=== PATIENT | male | born 1975 | race Hispanic/Latino ===

== ENCOUNTER 2017-08-13 19:18 | Emergency (ER) | payer SELFPAY ==
[2017-08-13 20:01] LABS: #Basophils 0.1 thou/uL (0.0-0.2); #Lymphocytes 3.7 thou/uL (1.20-3.40); #Neutrophils 12.7 thou/uL (1.40-6.50); %Basophils 0.5 % (0.0-1.0); %Eosinophils 0.2 % (0.0-10.0); %Lymphocytes 21.1 % (21.0-51.0); %Monocytes 5.5 % (0.0-10.0); %Neutrophils 72.8 % (42.0-75.0); Hemoglobin 15.1 g/dL (14.0-18.0); Mean Corpuscular HGB CONC 33.7 g/dL (32.0-36.0); Mean Corpuscular Hemoglobin 30.5 pg (27.0-31.0); Mean Corpuscular Volume 90.5 fL (78.0-98.0); Mean Platelet Volume 5.8 fL (7.4-10.4); Platelet Count 447 thou/uL (130-400); RBC Distribution Width 12.3 % (11.5-14.5); Red Blood Cell (RBC) Count 4.97 mill/uL (4.70-6.10); White Blood Cell (WBC) Count 17.4 thou/uL (4.8-10.8)
[2017-08-13 20:24] LABS: ALT (SGPT) 9 U/L (8-55); AST (SGOT) 17 U/L (5-34); Albumin 4.7 g/dL (3.5-5.0); Alcohol Less than 10 mg/dL (Less than 10); Alkaline Phosphatase 166 U/L (40-150); Anion Gap 17 mmol/L (10-20); BUN (Urea Nitrogen) 4 mg/dL (8.9-20.6); Bilirubin, Total 0.2 mg/dL (0.2-1.2); CK (CPK) 474 U/L (30-200); Calc. Creatinine Clearance 0 mL/min (70-130); Calcium 9.3 mg/dL (7.8-10.44); Carbon Dioxide 17 mmol/L (22-29); Chloride 117 mmol/L (98-107); Estimated GFR-MDRD 46; Globulin 2.9 g/dL (2.4-3.5); Glucose 130 mg/dL (70-105); Protein, Total 7.6 g/dL (6.0-8.3); Sodium 148 mmol/L (136-145)
[2017-08-13 20:27] LABS: Potassium 2.9 mmol/L (3.5-5.1)
[2017-08-13 20:35] LABS: Bilirubin Negative (Negative); Blood, Urine Negative (Negative); Clarity CLEAR (Clear); Glucose, Urine (Dipstick) Negative (Negative); Leukocyte Negative (Negative); Nitrite Negative (Negative); Protein, Urine (Dipstick) 30 mg/dL (Neg-Trace); Specific Gravity, Urine 1.026 (1.002-1.036); Urobilinogen 0.2 mg/dL (0.2-1.0)
[2017-08-13 20:40] LABS: Bacteria/HPF None Seen HPF (None Seen); Hyaline Casts/LPF 0-3 HYALINE CAST LPF (0-3 Hyaline); RBC/HPF None Seen HPF (0-3); Squamous Epithelial None Seen HPF (0-3); WBC/HPF None Seen HPF (0-3)
[2017-08-13] MEDS ORDERED: Potassium Chloride 20 MEQ TAB ONE (20:42)
[2017-08-13 20:51] LABS: Medtox Reader # READER 1
[2017-08-13 20:52] LABS: Amphetamine Not Detected (NotDetected); Barbiturates Screen Not Detected (NotDetected); Benzodiazepine Screen Detected (NotDetected); Cocaine Metabolite Screen Not Detected (NotDetected); Medtox Control Line Valid? VALID (VALID); Methadone Not Detected (NotDetected); Methamphetamine Not Detected (NotDetected); Opiate Screen Not Detected (NotDetected); Oxycodone Screen Not Detected (NotDetected); Phencyclidine (PCP) Not Detected (NotDetected); THC/Cannabinoid Screen Not Detected (NotDetected); Tricyclic Screen Not Detected (NotDetected)
[2017-08-13] MEDS ORDERED: Ondansetron ODT 4 MG TAB ONE (21:12)
[2017-08-13] MEDS ORDERED: cloNIDine 0.1 MG TAB ONE (21:13)
[2017-08-14 00:11] LABS: Anion Gap 14 mmol/L (10-20); BUN (Urea Nitrogen) 4 mg/dL (8.9-20.6); Calc. Creatinine Clearance 0 mL/min (70-130); Calcium 8.4 mg/dL (7.8-10.44); Carbon Dioxide 18 mmol/L (22-29); Chloride 119 mmol/L (98-107); Estimated GFR-MDRD 54; Glucose 121 mg/dL (70-105); Potassium 3.2 mmol/L (3.5-5.1); Sodium 148 mmol/L (136-145)
[2017-08-14] MEDS ORDERED: Multivitamins, Adult 10 ML, Thiamine HCl 100 MG, Folic Acid 1 MG in Dextrose 5 %-0.45 %... IV SCH (01:00)
[2017-08-14] MEDS ORDERED: Mag-Al 1200 mg/1200 mg/30 ML UDCUP ONE (02:08)
== END 2017-08-14 05:13 | disposition home or self-care (01) ==
LOC: ERS 19:18 → EEVIPCON 19:18 → ERS 08-14 05:13
DX: E86.0 Dehydration (principal); R44.1 Visual hallucinations; F18.90 Inhalant use, unspecified, uncomplicated; F10.20 Alcohol dependence, uncomplicated; I10 Essential (primary) hypertension; F32.9 Major depressive disorder, single episode, unspecified; F17.210 Nicotine dependence, cigarettes, uncomplicated; Z79.899 Other long term (current) drug therapy
CPT/HCPCS: 36415; 80053; 80306; 80307; 81003; 81015; 82550; 84443; 85025; 93005; 96361; 96365; 96366; J3411; J7042; Q0162

== ENCOUNTER 2018-11-22 17:57 | Emergency (ER) | payer SELFPAY ==
[2018-11-22 18:58] LABS: Bilirubin Negative (Negative); Blood, Urine Negative (Negative); Clarity Clear (Clear); Glucose, Urine (Dipstick) Normal (Negative); Leukocyte Negative Leu/uL (Negative); Nitrite Negative (Negative); Protein, Urine (Dipstick) Negative (Neg-Trace); Urobilinogen Normal mg/dL (Less than 2)
[2018-11-22 19:10] LABS: #Basophils 0.1 thou/uL (0.0-0.2); #Eosinphils 0.1 thou/uL (0.0-0.7); #Lymphocytes 4.5 thou/uL (1.20-3.40); #Monocytes 0.9 thou/uL (0.11-0.59); #Neutrophils 8.9 thou/uL (1.40-6.50); %Basophils 0.6 % (0.0-1.0); %Eosinophils 0.8 % (0.0-10.0); %Monocytes 6.5 % (0.0-10.0); %Neutrophils 61.1 % (42.0-75.0); Hemoglobin 13.7 g/dL (14.0-18.0); Mean Corpuscular HGB CONC 35.1 g/dL (32.0-36.0); Mean Corpuscular Hemoglobin 31.3 pg (27.0-31.0); Mean Corpuscular Volume 89.1 fL (78.0-98.0); Mean Platelet Volume 6.3 fL (7.4-10.4); Platelet Count 415 thou/uL (130-400); RBC Distribution Width 12.2 % (11.5-14.5); Red Blood Cell (RBC) Count 4.37 mill/uL (4.70-6.10); White Blood Cell (WBC) Count 14.5 thou/uL (4.8-10.8)
[2018-11-22 19:29] LABS: ALT (SGPT) 14 U/L (8-55); AST (SGOT) 17 U/L (5-34); Albumin 4.7 g/dL (3.5-5.0); Alkaline Phosphatase 127 U/L (40-110); Anion Gap 13 mmol/L (10-20); BUN (Urea Nitrogen) Less than 4 mg/dL (8.9-20.6); Bilirubin, Total 0.2 mg/dL (0.2-1.2); Calc. Creatinine Clearance 0 mL/min (70-130); Calcium 9.3 mg/dL (7.8-10.44); Carbon Dioxide 22 mmol/L (22-29); Chloride 103 mmol/L (98-107); Estimated GFR-MDRD 77; Globulin 2.8 g/dL (2.4-3.5); Glucose 82 mg/dL (70-105); Lipase 22 U/L (8-78); Potassium 3.3 mmol/L (3.5-5.1); Protein, Total 7.5 g/dL (6.0-8.3); Sodium 135 mmol/L (136-145)
[2018-11-22] MEDS ORDERED: Ondansetron ODT 4 MG TAB ONE (21:25)
--- NOTE | 2018-11-26 15:22 | EKG ---
Test Reason : ABD PAIN Blood Pressure : / mmHG Vent. Rate : 052 BPM Atrial Rate : 052 BPM P-R Int : 130 ms QRS Dur : 082 ms QT Int : 430 ms P-R-T Axes : 065 040 050 degrees QTc Int : 399 ms Sinus bradycardia Otherwise normal ECG Confirmed by LORNA AYALA, KATHRIN ([id number]), video effects editor YAS MOSELEY ([id number]) on 11/26/2018 3:22:04 PM Referred By: Confirmed By:KATHRIN ROTHMAN MD
== END 2018-11-22 21:47 | disposition home or self-care (01) ==
LOC: ERS 17:57
DX: R11.2 Nausea with vomiting, unspecified (principal); E87.6 Hypokalemia; F41.9 Anxiety disorder, unspecified; R19.7 Diarrhea, unspecified
CPT/HCPCS: 36415; 80053; 81003; 83690; 85025; 93005; Q0162

== ENCOUNTER 2018-11-30 08:43 | Emergency (ER) | payer SELFPAY ==
[2018-11-30 09:16] LABS: #Basophils 0.1 thou/uL (0.0-0.2); #Eosinphils 0.2 thou/uL (0.0-0.7); #Lymphocytes 2.2 thou/uL (1.20-3.40); #Monocytes 0.6 thou/uL (0.11-0.59); #Neutrophils 7.1 thou/uL (1.40-6.50); %Basophils 0.8 % (0.0-1.0); %Eosinophils 1.6 % (0.0-10.0); %Lymphocytes 21.4 % (21.0-51.0); %Monocytes 6.3 % (0.0-10.0); %Neutrophils 69.9 % (42.0-75.0); Hemoglobin 14.6 g/dL (14.0-18.0); Mean Corpuscular Hemoglobin 30.8 pg (27.0-31.0); Mean Corpuscular Volume 90.3 fL (78.0-98.0); Mean Platelet Volume 6.7 fL (7.4-10.4); Platelet Count 399 thou/uL (130-400); RBC Distribution Width 12.3 % (11.5-14.5); Red Blood Cell (RBC) Count 4.74 mill/uL (4.70-6.10); White Blood Cell (WBC) Count 10.2 thou/uL (4.8-10.8)
[2018-11-30 09:38] LABS: ALT (SGPT) 22 U/L (8-55); AST (SGOT) 20 U/L (5-34); Albumin 4.6 g/dL (3.5-5.0); Alkaline Phosphatase 111 U/L (40-110); Anion Gap 13 mmol/L (10-20); BUN (Urea Nitrogen) Less than 4 mg/dL (8.9-20.6); Bilirubin, Total 0.2 mg/dL (0.2-1.2); Calc. Creatinine Clearance 0 mL/min (70-130); Calcium 9.6 mg/dL (7.8-10.44); Carbon Dioxide 24 mmol/L (22-29); Chloride 107 mmol/L (98-107); Estimated GFR-MDRD 72; Globulin 2.5 g/dL (2.4-3.5); Glucose 138 mg/dL (70-105); Lipase 24 U/L (8-78); Potassium 3.9 mmol/L (3.5-5.1); Protein, Total 7.1 g/dL (6.0-8.3); Sodium 140 mmol/L (136-145)
[2018-11-30] MEDS ORDERED: ISOVUE-370 76%-LOCM 1 ML ONE (10:03)
[2018-11-30] MEDS ORDERED: Lidocaine Viscous Sol 2% 15 ml UD Cup ONE (10:21)
[2018-11-30] MEDS ORDERED: Mag-Al 1200 mg/1200 mg/30 ML UDCUP ONE (10:21)
[2018-11-30] MEDS ORDERED: Pantoprazole 40 MG VIAL ONE (10:21)
--- NOTE | 2018-11-30 10:38 | CT ---
CT Abdomen Pelvis W Con HISTORY: Abdominal pain with vomiting and diarrhea. COMPARISON: None. FINDINGS: On the uppermost slice there is a tiny area of tree-in-bud nodularity within the right midd le lobe, this could represent a very minimal pneumonitis. The liver, spleen, pancreas and gallbladder regions appear unremarkable. Right and left adrenal glands and right and left kidneys are normal in size. There is no significant periaortic or mesenteric lymphadenopathy. No bowel wall abnormalities. CT of pelvis performed with intravenous contrast enhancement: The appendix appears unremarkable, is s omewhat difficult to visualize. There is no evidence of adenopathy, mass or free fluid. Review of osseous structures show no lytic or blastic bony changes. IMPRESSION: No acute findings of the abdomen or pelvis.
[2018-11-30 10:56] LABS: Bilirubin Negative (Negative); Blood, Urine Negative (Negative); Clarity Clear (Clear); Glucose, Urine (Dipstick) Normal (Negative); Leukocyte Negative Leu/uL (Negative); Nitrite Negative (Negative); Protein, Urine (Dipstick) Negative (Neg-Trace); Urobilinogen Normal mg/dL (Less than 2)
== END 2018-11-30 11:41 | disposition home or self-care (01) ==
LOC: ERS 08:43
DX: R11.2 Nausea with vomiting, unspecified (principal); R19.7 Diarrhea, unspecified; R10.13 Epigastric pain; I10 Essential (primary) hypertension; F32.9 Major depressive disorder, single episode, unspecified; F17.210 Nicotine dependence, cigarettes, uncomplicated; Z79.899 Other long term (current) drug therapy
CPT/HCPCS: 36415; 74177; 80053; 81003; 83690; 85025; 96374; C9113; Q9966

== ENCOUNTER 2022-07-07 14:55 | Emergency (ER) | payer SELFPAY ==
[~2022-07-07 14:55] MED LIST: Iopamidol-370 76% 500 ML MDV (1 ML CHARGE) ONE
[2022-07-07 15:49] LABS: Hemoglobin 15.1 g/dL (14.0-18.0); Mean Corpuscular HGB CONC 33.5 g/dL (32.0-36.0); Mean Corpuscular Hemoglobin 29.8 pg (27.0-31.0); Mean Corpuscular Volume 89.1 fl (78.0-98.0); Mean Platelet Volume 8.9 fL (7.4-10.4); Platelet Count 426 10x3/uL (130-400); RBC Distribution Width 12.7 % (11.5-14.5); Red Blood Cell (RBC) Count 5.06 mill/uL (4.70-6.10); White Blood Cell (WBC) Count 25.1 10x3/uL (4.8-10.8)
[2022-07-07 15:53] LABS: Delete Auto Diff?? YES; Manual Diff?? YES
[2022-07-07 16:09] LABS: ALT (SGPT) 21 U/L (8-55); AST (SGOT) 15 U/L (5-34); Albumin 5.1 g/dL (3.5-5.0); Alkaline Phosphatase 154 U/L (40-110); Anion Gap 16 mmol/L (10-20); BUN (Urea Nitrogen) 8 mg/dL (8.9-20.6); Bilirubin, Total 0.4 mg/dL (0.2-1.2); Calc. Creatinine Clearance 0 mL/min (70-130); Calcium 10.8 mg/dL (7.8-10.44); Carbon Dioxide 25 mmol/L (22-29); Chloride 97 mmol/L (98-107); Estimated GFR 74; Globulin 3.5 g/dL (2.4-3.5); Glucose 116 mg/dL (70-105); Lipase 78 U/L (8-78); Potassium 4.8 mmol/L (3.5-5.1); Protein, Total 8.6 g/dL (6.0-8.3); Sodium 133 mmol/L (136-145)
[2022-07-07 16:20] LABS: CellaVision Operator ID LAB.MJL; Eosinophils 2 % (0-10); Lymphocytes 11 % (21-51); Monocytes 6 % (0-10); Neutrophil 77 % (42-75); Platelet Morphology Comment Platelets Increased; RBC Morphology Within Normal Limits; Reactive Lymphocytes 3 % (0-10); Total Cell Count 100
[2022-07-07] MEDS ORDERED: Ondansetron PF 4 MG/2 ML Vial ONE (17:45)
[2022-07-07] MEDS ORDERED: Ketorolac Tromethamine 30 MG/ML VIAL ONE (17:45)
[2022-07-07] MEDS ORDERED: Morphine 4 MG/ML VIAL ONE (18:23)
[2022-07-07 18:25] LABS: Bacteria/HPF None Seen HPF (None Seen); Bilirubin Negative (Negative); Blood, Urine Negative (Negative); Clarity Clear (Clear); Glucose, Urine (Dipstick) Normal (Negative); Ketone, Urine Negative (Negative); Leukocyte Negative Leu/uL (Negative); Nitrite Negative (Negative); Protein, Urine (Dipstick) 30 mg/dL (Neg-Trace); RBC/HPF 0-3 HPF (0-3); Specific Gravity, Urine 1.024 (1.002-1.036); Squamous Epithelial None Seen HPF (0-3); Urobilinogen Normal mg/dL (Less than 2); WBC/HPF 0-3 HPF (0-3); pH, Urine 6.5 (5.0-9.0)
[2022-07-07] MEDS ORDERED: Pantoprazole 40 MG VIAL ONE (18:58)
== END 2022-07-07 20:28 | disposition home or self-care (01) ==
LOC: ERS 14:55
DX: K52.9 Noninfective gastroenteritis and colitis, unspecified (principal); K29.70 Gastritis, unspecified, without bleeding; D72.829 Elevated white blood cell count, unspecified; I10 Essential (primary) hypertension; F17.210 Nicotine dependence, cigarettes, uncomplicated; Z79.899 Other long term (current) drug therapy
CPT/HCPCS: 36415; 74177; 80053; 81003; 81015; 83690; 85025; 96361; 96374; 96375; C9113; J1885; J2270; J2405; Q9967

== ENCOUNTER 2022-11-11 14:16 | Emergency (ER) | payer SELFPAY ==
[2022-11-11] MEDS ORDERED: Ibuprofen 800 MG TAB ONE (16:47)
== END 2022-11-11 16:50 | disposition home or self-care (01) ==
LOC: ERS 14:16
DX: L03.115 Cellulitis of right lower limb (principal); F17.220 Nicotine dependence, chewing tobacco, uncomplicated; Z79.899 Other long term (current) drug therapy
CPT/HCPCS: 99283

== ENCOUNTER 2024-08-25 23:29 | Emergency (ER) | payer OTHER ==
[2024-08-26] LABS: #Basophils 0.09 10x3/uL (0.0-0.2); #Eosinophils 0.35 10x3/uL (0.0-0.7); #Monocytes 0.90 10x3/uL (0.11-0.59); #Neutrophils 4.08 10x3/uL (1.40-6.50); %Basophils 1.0 % (0.0-1.0); %Eosinophils 3.7 % (0.0-10.0); %Lymphocytes 42.1 % (21.0-51.0); %Monocytes 9.6 % (0.0-10.0); %Neutrophils 43.4 % (42.0-75.0); Hematocrit 40.6 % (42.0-52.0); Hemoglobin 14.7 g/dL (14.0-18.0); Mean Corpuscular Hemoglobin 32.3 pg (27.0-31.0); Mean Corpuscular Volume 89.2 fL (78.0-98.0); Platelet Count 280 10x3/uL (130-400); Red Blood Cell (RBC) Count 4.55 mill/uL (4.70-6.10); White Blood Cell (WBC) Count 9.40 10x3/uL (4.8-10.8)
[2024-08-26] MEDS ORDERED: Ketorolac Tromethamine 30 MG (1 mL) VIAL ONE (00:02)
[2024-08-26 00:12] LABS: Acetaminophen 23 mcg/mL (Less than 10); Salicylate Less than 8.0 mg/dL (Less than 8.0)
[2024-08-26 00:13] LABS: ALT (SGPT) 11 U/L (Less than 45); AST (SGOT) 27 U/L (11-34); Albumin 4.4 g/dL (3.1-4.5); Alkaline Phosphatase 119 U/L (40-110); Anion Gap 14 mmol/L (10-20); BUN (Urea Nitrogen) Less than 4 mg/dL (8.9-20.6); Bilirubin, Total 1.0 mg/dL (0.3-1.2); Calc. Creatinine Clearance 0 mL/min (70-130); Calcium 9.1 mg/dL (7.8-10.44); Carbon Dioxide 26 mmol/L (22-29); Chloride 100 mmol/L (98-107); Globulin 2.8 g/dL (2.4-3.5); Glucose 92 mg/dL (70-105); Lipase 16 U/L (8-78); Potassium 4.3 mmol/L (3.5-5.1); Sodium 136 mmol/L (136-145)
[2024-08-26 00:39] LABS: Bacteria/HPF None Seen HPF (None Seen); CAUTI Indications for Culture < 2yrs of age; Glucose, Urine (Dipstick) Normal (Negative); Leukocyte Negative Leu/uL (Negative); Protein, Urine (Dipstick) Negative (Neg-Trace); RBC/HPF 0-3 HPF (0-3); Specific Gravity, Urine 1.004 (1.002-1.036); WBC/HPF 0-3 HPF (0-3)
[2024-08-26 00:43] LABS: Urine Culture Reflex Yes Yes
[2024-08-26 00:48] LABS: Cocaine Metabolite Screen PRELIM POSITIVE (Negative); THC/Cannabinoid Screen PRELIM POSITIVE (Negative); Tricyclic Screen Negative (Negative)
== END 2024-08-26 00:50 | disposition home or self-care (01) ==
LOC: ERS 23:29
DX: F10.239 Alcohol dependence with withdrawal, unspecified (principal); I10 Essential (primary) hypertension; F17.210 Nicotine dependence, cigarettes, uncomplicated
CPT/HCPCS: 80053; 80306; 80307; 81001; 83690; 85025; 87086; 96374; J1885

== ENCOUNTER 2025-01-11 20:17 | Emergency (ER) | payer OTHER, SELFPAY ==
[2025-01-11 20:50] LABS: Bacteria/HPF None Seen HPF (None Seen); CAUTI Indications for Culture Pelvic or flank pain; Glucose, Urine (Dipstick) Normal (Negative); Leukocyte Negative Leu/uL (Negative); Protein, Urine (Dipstick) Negative (Neg-Trace); RBC/HPF None Seen HPF (0-3); Specific Gravity, Urine 1.002 (1.002-1.036); WBC/HPF None Seen HPF (0-3)
[2025-01-11 20:54] LABS: Urine Culture Reflex No No
[2025-01-11 21:43] LABS: #Basophils 0.15 10x3/uL (0.0-0.2); #Eosinophils 0.14 10x3/uL (0.0-0.7); #Monocytes 1.05 10x3/uL (0.11-0.59); #Neutrophils 4.65 10x3/uL (1.40-6.50); %Basophils 1.3 % (0.0-1.0); %Eosinophils 1.2 % (0.0-10.0); %Lymphocytes 47.8 % (21.0-51.0); %Monocytes 9.1 % (0.0-10.0); %Neutrophils 40.3 % (42.0-75.0); Hematocrit 44.9 % (42.0-52.0); Hemoglobin 15.8 g/dL (14.0-18.0); Mean Corpuscular Hemoglobin 31.0 pg (27.0-31.0); Mean Corpuscular Volume 88.2 fL (78.0-98.0); Platelet Count 379 10x3/uL (130-400); Red Blood Cell (RBC) Count 5.09 mill/uL (4.70-6.10); White Blood Cell (WBC) Count 11.53 10x3/uL (4.8-10.8)
[2025-01-11 21:58] LABS: ALT (SGPT) 7 U/L (Less than 45); AST (SGOT) 20 U/L (11-34); Albumin 4.4 g/dL (3.1-4.5); Alkaline Phosphatase 140 U/L (40-110); Anion Gap 18 mmol/L (10-20); BUN (Urea Nitrogen) Less than 4 mg/dL (8.9-20.6); Bilirubin, Total 0.5 mg/dL (0.3-1.2); Calc. Creatinine Clearance 0 mL/min (70-130); Calcium 9.0 mg/dL (7.8-10.44); Carbon Dioxide 23 mmol/L (22-29); Chloride 106 mmol/L (98-107); Globulin 3.3 g/dL (2.4-3.5); Glucose 117 mg/dL (70-105); Lipase 33 U/L (8-78); Potassium 2.7 mmol/L (3.5-5.1); Sodium 144 mmol/L (136-145)
[2025-01-11 22:25] LABS: Cocaine Metabolite Screen PRELIM POSITIVE (Negative); THC/Cannabinoid Screen PRELIM POSITIVE (Negative); Tricyclic Screen Negative (Negative)
[2025-01-11] MEDS ORDERED: Droperidol 5 MG/2 ML VIAL ONE (22:28)
[2025-01-11 23:12] LABS: Acetaminophen Less than 10 mcg/mL (Less than 10); Salicylate Less than 8.0 mg/dL (Less than 8.0)
[2025-01-11] MEDS ORDERED: Magnesium 2 GM/50 ML BAG (IN WATER) ONE (23:43)
== END 2025-01-12 01:49 | disposition home or self-care (01) ==
LOC: ERS 20:17
DX: R07.89 Other chest pain (principal); F10.10 Alcohol abuse, uncomplicated; E87.6 Hypokalemia; E46 Unspecified protein-calorie malnutrition; I10 Essential (primary) hypertension; F17.210 Nicotine dependence, cigarettes, uncomplicated; Y90.8 Blood alcohol level of 240 mg/100 ml or more; Z55.6 Problems related to health literacy
CPT/HCPCS: 36415; 71045; 80053; 80306; 80307; 81001; 83690; 84484; 85025; 93005; 94760; 96374; 96375; J1790; J3411; J3475